=== PATIENT | female | born 1965 | race Caucasian/White ===

== ENCOUNTER 2024-06-19 18:56 | Inpatient (IN) | payer SELFPAY ==
--- NOTE | ~2024-06-19 | CT_ITS ---
CLINICAL HISTORY: periumblical mass? Incarcerated hernia? CT abdomen and pelvis with contrast Comparison: None Findings: No consolidation or effusion. Small hiatal hernia. Postsurgical changes noted along the gastric fundus. The liver, gallbladder, spleen, adrenal glands and pancreas are unremarkable. Kidneys, ureters and bladder are normal. Uterus and adnexa are within normal limits. There is a small bowel obstruction present. No pneumatosis, free air or abscess. Normal appendix. There is a focus of intussusception with the jejunal anastomosis, axial 38 -49. This is not appear to be the source of obstruction is small-bowel disc due to this is dilated. There is a fat containing ventral hernia with a 13 mm fascial defect. Mild stranding of the fat within this hernia. There is no bowel within the hernia. Question transition point involving a decompressed loop of small bowel within the anterior midabdomen , lateral to the hernia. Mild atherosclerotic disease. No acute osseous finding. Impression: There is a small bowel obstruction with the question of a transition involving the anterior midabdomen. This may relate to tethering secondary to herniated fat. The hernia sac itself does not contain bowel. There is intussusception of small bowel within the region of the jejunal anastomosis however this does not appear to be a point of obstruction. Incidental findings. This document has been electronically signed by: Benji Carter MD on 06/19/2024 22:25:07
[2024-06-19 20:07] VITALS: BP 154/91; PULSE 106; RESP 18; TEMP 36.4; O2SAT 96; BMI 38.3
--- NOTE | 2024-06-19 20:10 | ED.GENADULT ---
HPI - General Adult General Chief complaint: Abdominal Pain Stated complaint: Abdominal pain Time Seen by Provider: 06/19/24 20:28 Related Data Allergies Allergy/AdvReac Type Severity Reaction Status Date / Time No Known Allergies Allergy Unverified 06/19/24 20:09 [facility] Social History Social History Smoked in Last 30 Days: No Use of substances other than those prescribed or required for medical reasons: No Advance Directives: No Advance Directives Information Provided: No Do you have a plan to hurt others: No Plan Patient : No Physical Exam ED Vital Signs: Vital Signs - 24 hr 06/19/24 20:07 06/19/24 20:21 06/19/24 22:20 Temperature 97.6 F 98.3 F Pulse Rate 106 H 74 Respiratory Rate 18 17 19 Blood Pressure 154/91 H 138/71 Pulse Oximetry 96 97 Oxygen Delivery Method Room Air Room Air BMI result Body Mass Index 38.3 Course Course Course Narrative: RME: 58-year-old female presents to ED for abdominal pain. Patient presents to ED for hard abdominal mass in the periumbilical area since last night with nausea and vomiting. On exam positive for hard periumbilical mass very tender. Labs CT scan ordered to rule out incarcerated hernia. Charge nurse made aware. Patient constipated. Medications Administered Discontinued Medications Generic Name Dose Route Start Last Admin Trade Name Freq PRN Reason Stop Dose Admin Sodium Chloride 1,000 mls @ 999 mls/hr 06/19/24 21:00 06/19/24 21:08 Ns IV 06/19/24 22:00 999 mls/hr .Q1H1M CHANELL Administration Sodium Chloride 1,000 mls @ 999 mls/hr 06/19/24 21:15 06/19/24 21:08 Ns IV 06/19/24 22:15 999 mls/hr .Q1H1M CHANELL Administration Iohexol 85 ml 06/19/24 21:33 06/19/24 21:33 Iohexol 350 Mg/Ml 100 Ml Infus..Btl IV 06/19/24 21:34 85 ml ONCE ONE Administration Morphine Sulfate 4 mg 06/19/24 20:12 06/19/24 20:21 Morphine Sulfate 4 Mg/Ml Cartridge IVPUSH 06/19/24 20:13 4 mg ONCE ONE Administration Protocol Ondansetron HCl 4 mg 06/19/24 20:19 06/19/24 20:22 Ondansetron Hcl 4 Mg/2 Ml Vial IVPUSH 06/19/24 20:20 4 mg ONCE ONE Administration Medical Decision Making Lab Data 06/19/24 20:35 06/19/24 20:35 Labs: Lab Results 06/19/24 Range/Units 20:35 WBC 12.3 H (4.8-10.8) X10*3/uL RBC 5.30 (4.20-5.50) X10*6/uL Hgb 15.6 (12.0-16.0) g/dl Hct 45.5 (37.0-47.0) % MCV 85.8 (80.0-98.0) fL MCH 29.4 (27.0-33.0) pg MCHC 34.3 (31.0-35.0) g/dl RDW 13.2 (11.0-16.0) % Plt Count 299 (160-400) X10*3/uL MPV 9.7 (9.4-12.3) fL Immature Gran % (Auto) 0.2 (0.0-0.4) % Neut % (Auto) 84.9 H (45-73) % Lymph % (Auto) 10.5 L (20-40) % [place] % (Auto) 4.0 (2-11) % Eos % (Auto) 0.2 (0-4) % Baso % (Auto) 0.2 (0-2) % Lymph # (Auto) 1.3 (1.2-4.9) X10*3/uL [place] # (Auto) 0.5 (0.1-1.2) X10*3/uL Eos # (Auto) 0.0 (0.0-0.4) X10*3/uL Baso # (Auto) 0.0 (0.0-0.2) X10*3/uL Abs Immat Gran (auto) 0.03 (0.00-0.03) X10*3/uL Absolute Neuts (auto) 10.4 H (2.0-8.3) x10*3/uL Absolute Nucleated RBC 0.000 (0.0-0.012) X10*3/uL Nucleated RBC % (auto) 0.0 (0.0-0.2) /100WBC Sodium 139 (135-145) mmol/L Potassium 3.9 (3.3-5.1) mmol/L Chloride 102 (96-108) mmol/L Carbon Dioxide 22 (22-29) mmol/L Anion Gap 19 (12-20) BUN 14 (9-16) mg/dL Creatinine 1.04 (0.5-1.4) mg/dL Estim Creat Clear Calc 68.9 Estimated GFR 54 Random Glucose 214 H (60-115) mg/dL Lactic Acid 3.2 H* (0.5-2.0) mmol/L Calcium 10.5 H (8.4-10.2) mg/dL Total Bilirubin 0.8 (0.0-1.0) mg/dL AST 25 (5-31) U/L ALT 38 H (0-31) U/L Alkaline Phosphatase 84 (39-117) U/L Total Protein 8.6 H (6.5-8.0) g/dL Albumin 4.7 (3.5-5.0) g/dL Discharge Plan Discharge Clinical Impression: Hernia, ventral, Partial small bowel obstruction Patient Disposition: Admitted As Inpatient Print Language: Angolan
[2024-06-19 20:21] VITALS: RESP 17
[2024-06-19] MEDS: Morphine Sulfate 4 MG/ML CARTRIDGE IVPUSH (20:21)
[2024-06-19] MEDS: ondansetron HCL 4 MG/2 ML VIAL IVPUSH (20:22)
--- NOTE | 2024-06-19 20:29 | PC.NURSE ---
pt brought from triage to room. pt a&ox4, respirations even and unlabored. pt reporting waking up with sudden abdominal pain, nausea and vomiting, pt noted to have large hard mass on abdomen which is tender to touch. pt vomiting in room. 20G placed in left ac, medicated per apr.
[2024-06-19 20:41] LABS: MANUAL DIFF FLAG NO
--- NOTE | 2024-06-19 20:42 | ED_ITS ---
HPI - Abdominal Pain General Chief Complaint: Abdominal Pain Stated Complaint: Abdominal pain Time Seen by Provider: 06/19/24 20:28 History of Present Illness HPI narrative: Patient is a 58-year-old female with a history of gastric bypass about 15-20 years ago. Presented today with having abdominal pain in the epigastric area that was very abrupt in onset. Patient feel a mass there positive nausea positive bowel movement. Vomiting was yellow stuff. Patient from home. No fever no chills. No history small bowel obstruction in the past. Patient is from home. No chest pain or shortness of breath no diaphoresis. Related Data Allergies Allergy/AdvReac Type Severity Reaction Status Date / Time No Known Allergies Allergy Unverified 06/19/24 20:09 Review of Systems Review of Systems Positive abdominal pain in the epigastric area Yes all other systems are reviewed and are negative [facility] Past Medical History Attestation statement: The following information was validated with the patient. Social History Social History Smoked in Last 30 Days: No Use of substances other than those prescribed or required for medical reasons: No Advance Directives: No Advance Directives Information Provided: No Do you have a plan to hurt others: No Plan Patient : No Physical Exam ED Vital Signs: Vital Signs - 24 hr 06/19/24 20:07 06/19/24 20:21 06/19/24 22:20 Temperature 97.6 F 98.3 F Pulse Rate 106 H 74 Respiratory Rate 18 17 19 Blood Pressure 154/91 H 138/71 Pulse Oximetry 96 97 Oxygen Delivery Method Room Air Room Air BMI result Body Mass Index 38.3 Appearance: Alert. Oriented X3. No acute distress. Eyes: Pupils equal, round and reactive to light. ENT: Pharynx normal. Neck: Normal inspection. Neck supple. No lymph nodes noted. No crepitus CVS: Normal heart rate and rhythm. Pulses normal. Normal S1 and S2 Respiratory: No respiratory distress. Breath sounds normal. No Wheezing. No rales Abdomen: Soft and nontender. Positive epigastric mass palpable. No rigidity. No distention. good BS x4 Skin: Skin warm and dry. Normal skin color. Normal skin turgor. Extremities: No lower extremity edema. Neurovascular intact to all extremities. No Lacerations. No Rash Neuro: Oriented X 3. No motor deficit. No sensory deficit. Moving all extermities. No slurred speech Medical Decision Making Medical Decision Making [facility] Narrative: On exam patient had a what appears to be a hernia belt was palpable in the epigastric area. Flu constant pressure I was able to reduce it without any complication symptomatically patient feels improved. CT scan is pending labs are pending lactate is pending. In no acute distress. Patient's lactate was elevated at over 3. White count was normal. Patient's hernia was reduced. CT scan of the abdomen pelvis was done. CT showed fat containing ventral hernia with area of small bowel obstruction noted in the CT scan. The finding was discussed with surgery. Patient's symptomatically feels improved. IV fluid was given. Case discussed with surgery will admit for observation overnight. Currently in stable condition. Differential Diagnosis Differential Diagnoses: The differential diagnosis associated with the presentation includes Ventral hernia, small-bowel obstruction Admission/Observation Consideration of admission/observation: Escalation of care including admission/observation considered Will require admission Consult Healthcare Provider Management of the patient was discussed with: Tile Designer (Surgery) Lab Data [facility] Lab Attestation statement: I reviewed the patient's lab results. 06/19/24 20:35 06/19/24 20:35 Labs: Lab Results 06/19/24 Range/Units 20:35 WBC 12.3 H (4.8-10.8) X10*3/uL RBC 5.30 (4.20-5.50) X10*6/uL Hgb 15.6 (12.0-16.0) g/dl Hct 45.5 (37.0-47.0) % MCV 85.8 (80.0-98.0) fL MCH 29.4 (27.0-33.0) pg MCHC 34.3 (31.0-35.0) g/dl RDW 13.2 (11.0-16.0) % Plt Count 299 (160-400) X10*3/uL MPV 9.7 (9.4-12.3) fL Immature Gran % (Auto) 0.2 (0.0-0.4) % Neut % (Auto) 84.9 H (45-73) % Lymph % (Auto) 10.5 L (20-40) % [place] % (Auto) 4.0 (2-11) % Eos % (Auto) 0.2 (0-4) % Baso % (Auto) 0.2 (0-2) % Lymph # (Auto) 1.3 (1.2-4.9) X10*3/uL [place] # (Auto) 0.5 (0.1-1.2) X10*3/uL Eos # (Auto) 0.0 (0.0-0.4) X10*3/uL Baso # (Auto) 0.0 (0.0-0.2) X10*3/uL Abs Immat Gran (auto) 0.03 (0.00-0.03) X10*3/uL Absolute Neuts (auto) 10.4 H (2.0-8.3) x10*3/uL Absolute Nucleated RBC 0.000 (0.0-0.012) X10*3/uL Nucleated RBC % (auto) 0.0 (0.0-0.2) /100WBC Sodium 139 (135-145) mmol/L Potassium 3.9 (3.3-5.1) mmol/L Chloride 102 (96-108) mmol/L Carbon Dioxide 22 (22-29) mmol/L Anion Gap 19 (12-20) BUN 14 (9-16) mg/dL Creatinine 1.04 (0.5-1.4) mg/dL Estim Creat Clear Calc 68.9 Estimated GFR 54 Random Glucose 214 H (60-115) mg/dL Lactic Acid 3.2 H* (0.5-2.0) mmol/L Calcium 10.5 H (8.4-10.2) mg/dL Total Bilirubin 0.8 (0.0-1.0) mg/dL AST 25 (5-31) U/L ALT 38 H (0-31) U/L Alkaline Phosphatase 84 (39-117) U/L Total Protein 8.6 H (6.5-8.0) g/dL Albumin 4.7 (3.5-5.0) g/dL Independent Interpretation I performed an independent interpretation of an: CT Scan (Small-bowel obstruction) Radiology Impression Discussion of test interpretation with radiology: I have reviewed the radiologist's reading. Chronic Conditions History of Betsy-en-Y gastric bypass surgery Social Determinants Patient?s care significantly limited by Social Determinants of Health including: Problems related to primary support group Medications Administered Discontinued Medications Generic Name Dose Route Start Last Admin Trade Name Hilary PRN Reason Stop Dose Admin Sodium Chloride 1,000 mls @ 999 mls/hr 06/19/24 21:00 06/19/24 21:08 Ns IV 06/19/24 22:00 999 mls/hr .Q1H1M CHANELL Administration Sodium Chloride 1,000 mls @ 999 mls/hr 06/19/24 21:15 06/19/24 21:08 Ns IV 06/19/24 22:15 999 mls/hr .Q1H1M CHANELL Administration Iohexol 85 ml 06/19/24 21:33 06/19/24 21:33 Iohexol 350 Mg/Ml 100 Ml Infus..Btl IV 06/19/24 21:34 85 ml ONCE ONE Administration Morphine Sulfate 4 mg 06/19/24 20:12 06/19/24 20:21 Morphine Sulfate 4 Mg/Ml Cartridge IVPUSH 06/19/24 20:13 4 mg ONCE ONE Administration Protocol Ondansetron HCl 4 mg 06/19/24 20:19 06/19/24 20:22 Ondansetron Hcl 4 Mg/2 Ml Vial IVPUSH 06/19/24 20:20 4 mg ONCE ONE Administration Discharge Plan Discharge Clinical Impression: Hernia, ventral, Partial small bowel obstruction Patient Disposition: Admitted As Inpatient Print Language: French
[2024-06-19 20:43] LABS: Basophils Percent Auto 0.2 % (0-2); Eosinophils Percent Auto 0.2 % (0-4); Hematocrit 45.5 % (37.0-47.0); Hemoglobin 15.6 g/dl (12.0-16.0); Imm Gran Abs Auto 0.03 X10*3/uL (0.00-0.03); Imm Gran Pct Auto 0.2 % (0.0-0.4); Lymphocytes Absolute Auto 1.3 X10*3/uL (1.2-4.9); Lymphocytes Percent Auto 10.5 % (20-40); Mean Corpuscular HGB Conc 34.3 g/dl (31.0-35.0); Mean Corpuscular Hemoglobin 29.4 pg (27.0-33.0); Mean Corpuscular Volume 85.8 fL (80.0-98.0); Mean Platelet Volume 9.7 fL (9.4-12.3); Monocytes Absolute Auto 0.5 X10*3/uL (0.1-1.2); Neutrophils Absolute Auto 10.4 x10*3/uL (2.0-8.3); Neutrophils Percent Auto 84.9 % (45-73); Platelet Count 299 X10*3/uL (160-400); Red Cell Distribution Width 13.2 % (11.0-16.0); White Blood Count 12.3 X10*3/uL (4.8-10.8)
[2024-06-19 20:57] LABS: Alanine Aminotransferase 38 U/L (0-31); Albumin Level 4.7 g/dL (3.5-5.0); Alkaline Phosphatase 84 U/L (39-117); Anion Gap 19 (12-20); Aspartate Amino Transferase 25 U/L (5-31); Bilirubin Total 0.8 mg/dL (0.0-1.0); Blood Urea Nitrogen 14 mg/dL (9-16); Calcium 10.5 mg/dL (8.4-10.2); Carbon Dioxide 22 mmol/L (22-29); Chloride 102 mmol/L (96-108); Creatinine Clr Calc Pharmacy 68.9; Estimated Glomerular Filt Rate 54; Glucose Random 214 mg/dL (60-115); Potassium 3.9 mmol/L (3.3-5.1); Sodium 139 mmol/L (135-145); Total Protein 8.6 g/dL (6.5-8.0)
[2024-06-19 21:03] LABS: Lactic Acid 3.2 mmol/L (0.5-2.0)
[2024-06-19] MEDS: 0.9 % Sodium Chloride 1,000 ML 999 ML IV ×2 (21:08)
[2024-06-19] MEDS: iohexoL 350 MG/ML 100 ML INFUS..BTL 85 ML IV (21:33)
--- NOTE | 2024-06-19 22:17 | PC.NURSE ---
pt reports pain has subsided. fluids continue to administer at this time.
[2024-06-19 22:20] VITALS: BP 138/71; PULSE 74; RESP 19; TEMP 36.8; O2SAT 97
[2024-06-19 22:39] LABS: Reflex Lactate? Lactic Acid Added
[2024-06-19] MEDS: Dextrose 5 % and Lactated Ring 1,000 ML 125 ML IVCONT (23:03)
[2024-06-19 23:07] VITALS: RESP 17
[2024-06-19] MEDS: HYDROmorphone HCl 0.5 MG/0.5 ML SYRINGE IVPUSH (23:07)
--- NOTE | 2024-06-19 23:09 | PC.NURSE ---
pt medicated per apr for 10/07 and pain. maintainece fluids administered at this time.
[2024-06-19 23:10] VITALS: BP 132/78; PULSE 78
[2024-06-19 23:21] VITALS: BP 128/60; PULSE 61; RESP 16; TEMP 37.3; O2SAT 93
--- NOTE | 2024-06-19 23:34 | MHC.EDTECH ---
This pct assumed care of Patient at 2300 ,vitals taken ,lactic acid drawn and sent to lab ,Patient belonings list done ,Patient awaking ,resting in bed ,Patient aware we need urine sample ,Call lucas within Pt reach .
[2024-06-19 23:40] LABS: ~Lactic Acid-LAB USE ONLY 1.2 mmol/L (0.5-2.0)
[2024-06-20] VITALS (9 sets, daily range): BP systolic 126–153; BP diastolic 63–82; PULSE 52–95; RESP 16–18; TEMP 36.1–37.1; O2SAT 93–99
[2024-06-20 03:57] LABS: MANUAL DIFF FLAG NO
[2024-06-20 03:59] LABS: Basophils Percent Auto 0.2 % (0-2); Eosinophils Percent Auto 0.1 % (0-4); Hematocrit 37.6 % (37.0-47.0); Hemoglobin 12.4 g/dl (12.0-16.0); Imm Gran Abs Auto 0.02 X10*3/uL (0.00-0.03); Imm Gran Pct Auto 0.2 % (0.0-0.4); Lymphocytes Absolute Auto 1.7 X10*3/uL (1.2-4.9); Lymphocytes Percent Auto 18.7 % (20-40); Mean Corpuscular Hemoglobin 29.2 pg (27.0-33.0); Mean Corpuscular Volume 88.5 fL (80.0-98.0); Mean Platelet Volume 9.5 fL (9.4-12.3); Monocytes Absolute Auto 0.5 X10*3/uL (0.1-1.2); Monocytes Percent Auto 5.6 % (2-11); Neutrophils Absolute Auto 6.7 x10*3/uL (2.0-8.3); Neutrophils Percent Auto 75.2 % (45-73); Platelet Count 259 X10*3/uL (160-400); Red Blood Count 4.25 X10*6/uL (4.20-5.50); Red Cell Distribution Width 13.3 % (11.0-16.0); White Blood Count 8.9 X10*3/uL (4.8-10.8)
[2024-06-20 04:17] LABS: Anion Gap 12 (12-20); Blood Urea Nitrogen 10 mg/dL (9-16); Calcium 8.4 mg/dL (8.4-10.2); Carbon Dioxide 21 mmol/L (22-29); Chloride 110 mmol/L (96-108); Creatinine Clr Calc Pharmacy 108.6; Estimated Glomerular Filt Rate > 60; Glucose Random 169 mg/dL (60-115); Sodium 139 mmol/L (135-145)
--- NOTE | 2024-06-20 05:31 | PC.NURSE ---
pt awake and ambulatory to bathroom with steady gait, pt offers no complaints at this time
--- NOTE | 2024-06-20 06:12 | PM.HPGS ---
History of Present Illness History of Present Illness Date of Service: 06/20/24 <Merline White PA-C - Last Filed: 06/20/24 10:06> 06/20/24 <Jerry Pandey MD - Last Filed: 06/20/24 12:05> Chief complaint: Small bowel obstruction <Merline White PA-C - Last Filed: 06/20/24 10:06> Narrative: Bee Cordero is a 58 year old female with PMH significant for distant lap katya n y gastric bypass who presented to the ED with complaints of epigastric/mid abdominal pain and a hard lump at her umbilicus. She reports she was awoken by the pain. She has never noticed the lump there prior. The pain was associated with multiple episodes of vomiting. SHe denies fever, chills, diarrhea, sick contacts, prior similar episode. Work up showed leukocytosis and lactic acidosis of 3. Epigastric lump was felt to be a ventral hernia and was reduced uneventfully by ED provider with improvement in the patients symptoms. CT scan abd pelvis was performed following which showed a fat containing ventral hernia with mild stranding of the incarcerated fat, no bowel, possble intussusception with the jejunal anastomosis, small bowel at that point is dilated, question transition point involving a decompressed loop of small bowel within the anterior midabdomen. She currently feels well with no abdominal pain. No further nausea or vomiting since presentation. She has not passed any flatus. <Merline White PA-C - Last Filed: 06/20/24 10:06> Review of Systems Review of Systems: Yes all other systems are reviewed and are negative <Merline White PA-C - Last Filed: 06/20/24 10:06> PMFSH Past Medical History Medical History: Medical History No pertinent past medical history <Merline White PA-C - Last Filed: 06/20/24 10:06> Surgical History Surgical History: Surgical History Hx of gastric bypass <Merline White PA-C - Last Filed: 06/20/24 10:06> Social History Social History: Social History Household Members: Spouse Housing: House Are you a primary managed care manager to a significant other at home: No Do you presently have visiting nurse or other home services: No Patient Tobacco Use Status: Never used Tobacco Smoked in Last 30 Days: No Use of substances other than those prescribed or required for medical reasons: No Currently Displaying Signs/Symptoms of Drug Intoxication Withdrawal: No Have you been hit, kicked, punched, or otherwise hurt by someone within the past year? If so, by whom?: No Do you feel safe in your current relationship?: Yes Is there a partner from a previous relationship who is making you feel unsafe now?: No Are you made to feel afraid or neglected: No Are you DNR?: No Advance Directives: No Advance Directives Information Provided: No Do you have a plan to hurt others: No Plan Recently lost weight without trying: No Nutrition Risks: No Nutritional Risk Patient : No : No Poor oral hygiene: No <Merline White PA-C - Last Filed: 06/20/24 10:06> Meds Allergies/Adverse reactions: Allergies Allergy/AdvReac Type Severity Reaction Status Date / Time No Known Allergies Allergy Verified 06/20/24 11:02 <Merline White PA-C - Last Filed: 06/20/24 10:06> Active Medications: Current Medications Calcium Carbonate (Calcium Carbonate 750 Mg Tab.Chew) 750 mg PO Q4H PRN PRN Reason: Heartburn Hydromorphone HCl (Hydromorphone Hcl 0.5 Mg/0.5 Ml Syringe) 0.5 mg IVPUSH Q3H PRN; Protocol PRN Reason: Pain, Severe (Pain Scale 7-10) Last Admin: 06/19/24 23:07 Dose: 0.5 mg Acetaminophen (Ofirmev) 1,000 mg in 100 mls @ 400 mls/hr IV Q6H PRN PRN Reason: Pain, Mild (Pain Scale 1-3) Dextrose/Lactated Ringer's (D5lr) 1,000 mls @ 125 mls/hr IVCONT .Q8H CHANELL Last Admin: 06/19/24 23:03 Dose: 125 mls/hr Magnesium Hydroxide (Milk Of Magnesia 30 Ml Oral.Susp) 30 ml PO DAILY PRN PRN Reason: Constipation Melatonin (Melatonin 3 Mg Tablet) 6 mg PO BEDTIME PRN PRN Reason: Insomnia Ondansetron HCl (Ondansetron Hcl 4 Mg/2 Ml Vial) 4 mg IVPUSH QID PRN PRN Reason: Nausea Sodium Chloride (0.9 % Sodium Chloride Flush 3 Ml Syringe) [address] [facility] Last Admin: 06/20/24 00:25 Dose: Not Given <LAVELLE Nieves Last Filed: 06/20/24 10:06> Home medications: Home Medications ?Medication ?Instructions ?Recorded ?Confirmed ?Last Taken ?Type cyanocobalamin (vitamin B-12) 2,000 mcg PO DAILY 06/20/24 06/20/24 06/18/24 History 1,000 mcg tablet (Vitamin B-12) multivitamin 1 tab PO DAILY 06/20/24 06/20/24 06/18/24 History omega 8-xof-cog-fish oil 1,000 mg 1 cap PO DAILY 06/20/24 06/20/24 06/18/24 History (120 mg-180 mg) capsule (Fish Oil) <LAVELLE Nieves Last Filed: 06/20/24 10:06> Physical Exam Vital Signs: Vital Signs: Last Vital Signs Temp 99.2 F 06/19/24 23:21 Pulse 61 06/19/24 23:21 Resp 16 06/19/24 23:21 BP 128/60 06/19/24 23:21 Pulse Ox 93 06/19/24 23:21 O2 Del Method Room Air 06/19/24 23:21 BMI result Body Mass Index 38.3 <LAVELLE Nieves Last Filed: 06/20/24 10:06> Const: General: comfortable, no acute distress and alert <LAVELLE Nieves Last Filed: 06/20/24 10:06> Orientation/consciousness: patient oriented x3 <LAVELLE Nieves Last Filed: 06/20/24 10:06> Resp: Effort & Inspection: normal respiratory effort <LAVELLE Nieves Last Filed: 06/20/24 10:06> GI: Other: multiple small scars of the upper abdomen, periumbilical scar with small mass below about 2-3cm consistent with incarcerated omentum, no overyling skin changes, mild tenderness <LAVELLE Nieves Last Filed: 06/20/24 10:06> Inspection: No distended <LAVELLE Nieves Last Filed: 06/20/24 10:06> Palpation (GI): Soft to palpation and no guarding <LAVELLE Nieves Last Filed: 06/20/24 10:06> Skin: General skin exam: no rashes or lesions noted <LAVELLE iNeves Last Filed: 06/20/24 10:06> Neuro: General: patient oriented x3 and moves all extremities <LAVELLE Nieves Last Filed: 06/20/24 10:06> Results Results Labs: Short CBC 06/19/24 06/20/24 Range/Units 20:35 03:52 WBC 12.3 H 8.9 (4.8-10.8) X10*3/uL Hgb 15.6 12.4 D (12.0-16.0) g/dl Hct 45.5 37.6 (37.0-47.0) % Plt Count 299 259 (160-400) X10*3/uL BMP 06/19/24 06/20/24 20:35 03:52 Sodium 139 139 Potassium 3.9 4.0 Chloride 102 110 H Carbon Dioxide 22 21 L BUN 14 10 Creatinine 1.04 0.66 Calcium 10.5 H 8.4 D Liver Function 06/19/24 Range/Units 20:35 Total Bilirubin 0.8 (0.0-1.0) mg/dL AST 25 (5-31) U/L ALT 38 H (0-31) U/L Alkaline Phosphatase 84 (39-117) U/L Albumin 4.7 (3.5-5.0) g/dL <LAVELLE Nieves Last Filed: 06/20/24 10:06> Abdomen CT scan report/results: report reviewed and image reviewed <Merline Truongdeau, PA-C - Last Filed: 06/20/24 10:06> Assessment and Plan (1) H/O gastric bypass: Status: Acute <Merline ChristopherLAVELLE figueroa - Last Filed: 06/20/24 10:06> (2) Partial small bowel obstruction: Status: Acute <Merline ChristopherLAVELLE figueroa Jazmyne Last Filed: 06/20/24 10:06> (3) Hernia, ventral: Qualifiers: Obstruction and gangrene presence: without obstruction or gangrene Qualified Code(s): K43.9 - Ventral hernia without obstruction or gangrene <Merline White PA-C Jazmyne Last Filed: 06/20/24 10:06> Status: Acute <Merline ChristopherLAVELLE figueroa Jazmyne Last Filed: 06/20/24 10:06> 58 year old female with PMH significant for distant lap katya n y gastric bypass presenting with mid abdominal pain associated with painful lump found to have incarcerated ventral hernia which was reduced in ED. Subsequent CT scan shows ventral hernia with fat contents, no bowel loops. May have had developed SBO secondary to this hernia given the small bowel dilatation. She does still have some incarcerated omentum and is mildly symptomatic for this. She was admitted to the surgical service for further treatment of the SBO, incisional hernia. We discussed proceeding with repair of the incarcerated incisional hernia during her stay. Will keep NPO for now, Cont IVF, encouraged OOB/ambulation to promote GI function. Lactic acidosis likely due to volume depletion due to GI losses, now resolved. Patient comfortable with plan. <Merline White PA-C - Last Filed: 06/20/24 10:06> 58 year old female with PMH significant for distant lap katya n y gastric bypass presenting with mid abdominal pain associated with painful lump found to have incarcerated ventral hernia which was reduced in ED. Subsequent CT scan shows ventral hernia with fat contents, no bowel loops. May have had developed SBO secondary to this hernia given the small bowel dilatation. She does still have some incarcerated omentum and is mildly symptomatic for this. She was admitted to the surgical service for further treatment of the SBO, incisional hernia. We discussed proceeding with repair of the incarcerated incisional hernia during her stay. Will keep NPO for now, Cont IVF, encouraged OOB/ambulation to promote GI function. Lactic acidosis likely due to volume depletion due to GI losses, now resolved. Patient comfortable with plan. Patient seen and examined independently and agree with the above assessment and plan. Patient has a reducible ventral hernia measuring 2 cm in diameter. She was still having tenderness to palpation of the hernia therefore I would recommend repair of this ventral hernia with mesh. After discussion of the procedure, risks, and alternatives, she consents to repair of the ventral hernia with mesh. She has been added onto the operative schedule for today. <Jerry Pandey MD - Last Filed: 06/20/24 12:05> Quality Stroke Does the patient have a stroke diagnosis?: No <Merline White PA-C - Last Filed: 06/20/24 10:06> VTE Prior VTE?: No <Merline White PA-C - Last Filed: 06/20/24 10:06> VTE Risk Level:: Surgical - moderate <Merline White PA-C - Last Filed: 06/20/24 10:06> VTE Device Contraindication: N/A - Device Ordered <Merline White PA-C - Last Filed: 06/20/24 10:06> VTE Drug Contraindication: Treatment Not Indicated <Merline White PA-C - Last Filed: 06/20/24 10:06> Procedures Date of Service Date of Service: 06/20/24 <Merline White PA-C - Last Filed: 06/20/24 10:06> 06/20/24 <Jerry Pandey MD - Last Filed: 06/20/24 12:05>
[2024-06-20] MEDS: Dextrose 5 % and Lactated Ring 1,000 ML 125 ML IVCONT ×3 (06:21→22:40)
--- NOTE | 2024-06-20 06:21 | PC.NURSE ---
pt left ac iv access removed at this time d/t infiltration.
--- NOTE | 2024-06-20 06:23 | MHC.EDTECH ---
Patient urine sample collected and sent to lab ,Call lance within Pt reach .
[2024-06-20 06:40] LABS: Appearance Urine Clear; Color Urine Yellow; Glucose Urine UA Negative (Negative); Leukocyte Esterase Urine Trace (Negative); Nitrite Urine Negative (Negative); PH 5.5 (5.0-9.0); Specific Gravity - Urine >= 1.030 (1.005-1.025); UMIC TRIGGER UACC YES; Urine Blood Negative (Negative); Urine Ketones Negative (Negative); Urine Protein Negative (Neg-Trace)
[2024-06-20 06:42] LABS: Bacteria Urine 1+ (None Seen); RBC Urine 0-2 /HPF (0-2); WBC Urine 0-5 /HPF (0-5)
--- NOTE | 2024-06-20 07:32 | PHA.MEDREC ---
Pharmacy Consult ? Medication Reconciliation Pharmacy has completed the medication reconciliation. Spoke to patient ton confirm medication list. Patient does not take any prescriptions, only OTCs. Last dose was Tuesday06/18/24.
--- NOTE | 2024-06-20 11:15 | P.CONAN_ITS ---
HPI - Anesthesia Eval Consult details Narrative: incisional hernia repair PMFSH Active Problems Active Problems: All Active Problems H/O gastric bypass (Acute) Partial small bowel obstruction (Acute) Hernia, ventral (Acute) Past Medical History Medical History No pertinent past medical history Family History Family history of problems with anesthesia: No Surgical History Surgical History Hx of gastric bypass History of Problems with Anesthesia: No Social History Social History Household Members: Spouse Housing: House Are you a primary career placement specialist to a significant other at home: No Do you presently have visiting nurse or other home services: No Patient Tobacco Use Status: Never used Tobacco Smoked in Last 30 Days: No Use of substances other than those prescribed or required for medical reasons: No Currently Displaying Signs/Symptoms of Drug Intoxication Withdrawal: No Have you been hit, kicked, punched, or otherwise hurt by someone within the past year? If so, by whom?: No Do you feel safe in your current relationship?: Yes Is there a partner from a previous relationship who is making you feel unsafe now?: No Are you made to feel afraid or neglected: No Are you DNR?: No Advance Directives: No Advance Directives Information Provided: No Do you have a plan to hurt others: No Plan Recently lost weight without trying: No Nutrition Risks: No Nutritional Risk Patient : No : No Poor oral hygiene: No Meds Allergies Allergy/AdvReac Type Severity Reaction Status Date / Time No Known Allergies Allergy Verified 06/20/24 11:02 Active Medications: Current Medications Calcium Carbonate (Calcium Carbonate 750 Mg Tab.Chew) 750 mg PO Q4H PRN PRN Reason: Heartburn Hydromorphone HCl (Hydromorphone Hcl 0.5 Mg/0.5 Ml Syringe) 0.5 mg IVPUSH Q3H PRN; Protocol PRN Reason: Pain, Severe (Pain Scale 7-10) Last Admin: 06/19/24 23:07 Dose: 0.5 mg Acetaminophen (Ofirmev) 1,000 mg in 100 mls @ 400 mls/hr IV Q6H PRN PRN Reason: Pain, Mild (Pain Scale 1-3) Dextrose/Lactated Ringer's (D5lr) 1,000 mls @ 125 mls/hr IVCONT .Q8H [facility] Last Admin: 06/20/24 06:21 Dose: 125 mls/hr Magnesium Hydroxide (Milk Of Magnesia 30 Ml Oral.Susp) 30 ml PO DAILY PRN PRN Reason: Constipation Melatonin (Melatonin 3 Mg Tablet) 6 mg PO BEDTIME PRN PRN Reason: Insomnia Ondansetron HCl (Ondansetron Hcl 4 Mg/2 Ml Vial) 4 mg IVPUSH QID PRN PRN Reason: Nausea Sodium Chloride (0.9 % Sodium Chloride Flush 3 Ml Syringe) 3 ml IVFLUSH QSHIFT [facility] Last Admin: 06/20/24 07:46 Dose: Not Given Home Medications ?Medication ?Instructions ?Recorded ?Confirmed ?Last Taken ?Type cyanocobalamin (vitamin B-12) 2,000 mcg PO DAILY 06/20/24 06/20/24 06/18/24 History 1,000 mcg tablet (Vitamin B-12) multivitamin 1 tab PO DAILY 06/20/24 06/20/24 06/18/24 History omega 3-rbi-umk-fish oil 1,000 mg 1 cap PO DAILY 06/20/24 06/20/24 06/18/24 History (120 mg-180 mg) capsule (Fish Oil) Exam Height,Weight and Vital Signs: Height 5 ft 5 in Weight 104.326 kg Last Vital Signs Temp 97.8 F 06/20/24 07:50 Pulse 63 06/20/24 07:50 Resp 16 06/20/24 07:50 BP 153/72 H 06/20/24 07:50 Pulse Ox 97 06/20/24 07:50 O2 Del Method Room Air 06/20/24 07:50 Pertinent Lab Results Pertinent Lab Results: Laboratory Tests 06/19/24 06/19/24 06/20/24 20:35 23:19 03:52 WBC 12.3 H 8.9 RBC 5.30 4.25 Hgb 15.6 12.4 D Hct 45.5 37.6 MCV 85.8 88.5 MCH 29.4 29.2 MCHC 34.3 33.0 RDW 13.2 13.3 Plt Count 299 259 MPV 9.7 9.5 Immature Gran % (Auto) 0.2 0.2 Neut % (Auto) 84.9 H 75.2 H Lymph % (Auto) 10.5 L 18.7 L Gila % (Auto) 4.0 5.6 Eos % (Auto) 0.2 0.1 Baso % (Auto) 0.2 0.2 Lymph # (Auto) 1.3 1.7 Gila # (Auto) 0.5 0.5 Eos # (Auto) 0.0 0.0 Baso # (Auto) 0.0 0.0 Abs Immat Gran (auto) 0.03 0.02 Absolute Neuts (auto) 10.4 H 6.7 Absolute Nucleated RBC 0.000 0.000 Nucleated RBC % (auto) 0.0 0.0 Sodium 139 139 Potassium 3.9 4.0 Chloride 102 110 H Carbon Dioxide 22 21 L Anion Gap 19 12 BUN 14 10 Creatinine 1.04 0.66 Estim Creat Clear Calc 68.9 108.6 Estimated GFR 54 > 60 Random Glucose 214 H 169 H Lactic Acid 3.2 H* Lactic Acid F/U @ 2Hr 1.2 Calcium 10.5 H 8.4 D Total Bilirubin 0.8 AST 25 ALT 38 H Alkaline Phosphatase 84 Total Protein 8.6 H Albumin 4.7 Urine Color Urine Appearance Urine pH Ur Specific [place] Urine Protein Urine Glucose (UA) Urine Ketones Urine Blood Urine Nitrite Ur Leukocyte Esterase Urine RBC Urine WBC Ur Squamous Epith Cells Urine Bacteria Hyaline Casts 06/20/24 06:21 WBC RBC Hgb Hct MCV MCH MCHC RDW Plt Count MPV Immature Gran % (Auto) Neut % (Auto) Lymph % (Auto) Gila % (Auto) Eos % (Auto) Baso % (Auto) Lymph # (Auto) Gila # (Auto) Eos # (Auto) Baso # (Auto) Abs Immat Gran (auto) Absolute Neuts (auto) Absolute Nucleated RBC Nucleated RBC % (auto) Sodium Potassium Chloride Carbon Dioxide Anion Gap BUN Creatinine Estim Creat Clear Calc Estimated GFR Random Glucose Lactic Acid Lactic Acid F/U @ 2Hr Calcium Total Bilirubin AST ALT Alkaline Phosphatase Total Protein Albumin Urine Color Yellow Urine Appearance Clear Urine pH 5.5 Ur Specific [place] >= 1.030 H Urine Protein Negative Urine Glucose (UA) Negative Urine Ketones Negative Urine Blood Negative Urine Nitrite Negative Ur Leukocyte Esterase Trace H Urine RBC 0-2 Urine WBC 0-5 Ur Squamous Epith Cells 6-10 Urine Bacteria 1+ Hyaline Casts 3-5 Airway Mallampati Class: II TM Dist: >3cm Neck ROM: Full Heart: rrr Lungs: cta Assessment and Plan Assessment Anesthesia Assessment: Anesthesia Plan Discussed and Chart Reviewed Final Anesthetic Review Family History of Problems with Anesthesia: No History of Problems with Anesthesia: No NPO: Yes ASA Class: III Final Preanesthetic Review: No Changes in Pt Med Stat, Meds/Allgs Chart Reviewed, Consent Obtained/Reviewed and Anes Risks/Benef Reviewed Patient Risk: Intermediate Procedure Risk: Intermediate Anesthetic Plan Anesthetic Plan: GA Disposition: Standard PACU
[2024-06-20] MEDS: ceFAZolin Sodium/Dextrose,Iso 2 GM/50 ML PIGGYBACK IV (12:24)
--- NOTE | 2024-06-20 12:58 | W.PM.OPN ---
Operative Note Operative Note Date of Service: 06/20/24 Narrative: Preoperative diagnosis: Reducible ventral hernia Postoperative diagnosis: Incarcerated ventral hernia Procedure: Repair of incarcerated ventral hernia with mesh Surgeon: Jerry Pandey MD [employer] Attendant: Merline White PA-C; Lux Ortez PA-C Anesthesia: General endotracheal Indications for procedure: 58-year-old female patient presenting with complaints of abdominal pain in the periumbilical location found to have a palpable lump in this location. This was partially reduced in the emergency department however subsequent CT abdomen and pelvis revealed evidence of omentum within the hernia sac. She presents today for repair of this ventral hernia with mesh. Operative findings: Patient was found to have a 2 cm defect located approximately 3 cm above the umbilicus. The contents were incarcerated within the hernia sac and contained both omentum and a small loop of small bowel. The fascial defect needed to be opened further to allow reduction of the hernia contents. A mesh repair was performed using a 6.4 cm round Ventralex mesh. Specimen: None Estimated blood loss: 5 mL Complications: None Procedure details: Patient was brought to the OR and placed in a supine position. After administering general anesthesia the patient's abdomen was prepped with ChloraPrep and draped in a sterile fashion. A surgical time-out was called the consent confirmed. Patient received preoperative antibiotics and Venodyne boots were in place. Local anesthesia was infiltrated in the midline and a midline incision created just above the umbilicus. Dissection was continued down through the subcutaneous tissue up to the hernia sac. Hernia sac was then dissected down to the fascial defect. A tight fascial defect was identified and the contents were not able to be reduced. The sac was entered and omentum and a small loop of bowel noted within the hernia sac. Dissection was continued down to the fascia which was opened using electrocautery. This allowed reduction of the abdominal contents into the abdominal cavity. Fascia was further defined using electrocautery. A preperitoneal space was then directed using a combination of blunt and sharp dissection. Hemostasis was assured using electrocautery. A 6.4 cm round Ventralex mesh was then obtained. This was deployed within the preperitoneal space and secured in 4 quadrants using the 0 Tycron suture. Fascia was then closed over the mesh using [id number] 0 Tycron sutures. Before completely closing the fascia over mesh approximately 4 mL of Zenrelef was instilled below the fascia for postoperative pain relief. Deep subcutaneous tissue was then closed using interrupted 3-0 Polysorb sutures. Additional Zenrelef was instilled below this closure as well. Dermis was reapproximated using interrupted 3-0 Polysorb sutures. Skin was closed using a running subcuticular 4-0 Polysorb suture. Steri-Strips, 2 x 2 gauze and Tegaderm were then applied. The patient tolerated the procedure well. Sponge, instrument, and needle counts reported as correct. The patient was transferred to PACU in stable condition.
--- NOTE | 2024-06-20 13:13 | MHC.CM.PN ---
Unable to complete CM assessment at this time, patient off unit.
--- NOTE | 2024-06-20 14:09 | PM.EVENT ---
Event Note Date of Service: 06/20/24 Event Note: Seen on afternoon rounds Says he continues to do well Has been ambulating Passing good amounts of flatus via the stoma No stool yet Good pain control He is hungry I urged him to ambulate Okay to try full liquids tonight Started on Colace Time Spent With Patient Time: Total time managing care of this patient today ____ minutes.
--- NOTE | 2024-06-20 15:53 | MHC.CM.PN ---
PATIENT LIVES IN A HOME W/ . FUNCTIONALLY INDEPENDENT. DENIES USE OF DME OR SERVICES. NO PCP. BROCHURE PROVIDED. NO HCP. DECLINES TO COMPLETE AT THIS TIME. NO INSURANCE - FINANCIAL REFERRAL. DP: HOME SELF CARE, TO TRANSPORT. CM WILL CONTINUE TO FOLLOW.
[2024-06-20] MEDS: HYDROmorphone HCl 0.5 MG/0.5 ML SYRINGE IVPUSH (22:39)
[2024-06-21 03:46] VITALS: BP 120/60; PULSE 69; RESP 16; TEMP 36.3; O2SAT 96
[2024-06-21] MEDS: Acetaminophen 1,000 MG/100 ML PIGGYBACK 400 MG IV (03:56)
[2024-06-21] MEDS: Dextrose 5 % and Lactated Ring 1,000 ML 125 ML IVCONT (03:56)
--- NOTE | 2024-06-21 07:35 | P.PNGS_ITS ---
Subjective Subjective Date of Service: 06/21/24 Patient reports: still having pain, tolerating liquids well, flatus and no bowel movement Interval history: 58 year old female POD 1 s/p ventral hernia repair. Patient reports she is doing okay today. States she had a difficult time sleeping due to pain. She endorses pain with ambulation that improves with rest. She is tolerating diet well, had chicken soup for dinner. She denies any bowel movements, endorses passing flatus. She denies any nausea or vomiting at this time. She has been able to ambulate to the bathroom. Physical Exam 2 Vital Signs: Vital Signs: Last Vital Signs Temp 97.4 F 06/21/24 03:46 Pulse 69 06/21/24 03:46 Resp 16 06/21/24 03:46 BP 120/60 06/21/24 03:46 Pulse Ox 96 06/21/24 03:46 O2 Del Method Room Air 06/21/24 03:46 O2 Flow Rate 5 06/20/24 13:35 BMI result Body Mass Index 38.3 Const: General: cooperative, no acute distress, alert and awake O rientation/consciousness: patient oriented x3 GI: Other: incision site dressings intact, dry, clean. Palpation (GI): Soft to palpation, Tenderness to palpation present (GI) (incisional site pain) and no guarding Percussion: Yes normal to percussion Neuro: General: patient oriented x3 Objective Data Active Medications Calcium Carbonate (Calcium Carbonate 750 Mg Tab.Chew) 750 mg PO Q4H PRN PRN Reason: Heartburn Cyanocobalamin (Cyanocobalamin (Vitamin B-12) 1,000 Mcg Tablet) 2,000 mcg PO DAILY CHANELL Docusate Sodium (Docusate Sodium 100 Mg Capsule) 100 mg PO BID CHANELL Hydromorphone HCl (Hydromorphone Hcl 0.5 Mg/0.5 Ml Syringe) 0.5 mg IVPUSH Q3H PRN; Protocol PRN Reason: Pain, Severe (Pain Scale 7-10) Last Admin: 06/20/24 22:39 Dose: 0.5 mg Documented By: KENNETH Acetaminophen (Ofirmev) 1,000 mg in 100 mls @ 400 mls/hr IV Q6H PRN PRN Reason: Pain, Mild (Pain Scale 1-3) Last Infusion: 06/21/24 04:12 Dose: Infused Documented By: KENNETH Dextrose/Lactated Ringer's (D5lr) 1,000 mls @ 125 mls/hr IVCONT .Q8H [facility] Last Admin: 06/21/24 03:56 Dose: 125 mls/hr Documented By: KENNETH Magnesium Hydroxide (Milk Of Magnesia 30 Ml Oral.Susp) 30 ml PO DAILY PRN PRN Reason: Constipation Melatonin (Melatonin 3 Mg Tablet) 6 mg PO BEDTIME PRN PRN Reason: Insomnia Ondansetron HCl (Ondansetron Hcl 4 Mg/2 Ml Vial) 4 mg IVPUSH QID PRN PRN Reason: Nausea Oxycodone HCl (Oxycodone Hcl Immed Release 5 Mg Tablet) 5 mg PO Q4H PRN PRN Reason: Pain, Moderate(Pain Scale 4-6) Sodium Chloride (0.9 % Sodium Chloride Flush 3 Ml Syringe) 3 ml IVFLUSH QSHIFT [facility] Last Admin: 06/20/24 22:41 Dose: Not Given Documented By: KENNETH Non-Admin Reason: IV Running Labs 06/20/24 03:52 06/20/24 03:52 Procedures Date of Service Date of Service: 06/21/24 Progress Note: A&P Assessment and plan (1) Hernia, ventral: Status: Acute Plan 58-year-old female POD 1 s/p ventral hernia repair. Patient is doing well overall. Experiencing incisional site pain to palpation, endorses some pain with rest that increases with ambulation. Incision site dressings are cleanr and dry. She has been ambulating from the bed to the bathroom. Denies bowel movement, endorses flatus. Tolerating current diet, no nausea or vomiting. Will trial oral pain medications Continue to recommend ambulation as tolerated Continue with diet. Will reevaluate this afternoon, if tolerating oral diet and pain medications, patient can be discharged. Time Spent With Patient Time: Total time managing care of this patient today ____ minutes. Quality Stroke Does the patient have a stroke diagnosis?: No VTE Prior VTE?: No VTE Risk Level:: Surgical - moderate VTE Device Contraindication: N/A - Device Ordered VTE Drug Contraindication: Treatment Not Indicated
[2024-06-21] MEDS: Cyanocobalamin (Vitamin B-12) 1,000 MCG TABLET 2000 MCG PO (07:41)
[2024-06-21] MEDS: 0.9 % Sodium Chloride Flush 3 ML SYRINGE IVFLUSH (07:41)
[2024-06-21] MEDS: Docusate Sodium 100 MG CAPSULE PO (07:41)
[2024-06-21 07:53] VITALS: BP 120/72; PULSE 100; RESP 18; TEMP 36.8; O2SAT 96
--- NOTE | 2024-06-21 08:14 | HO.POSTANES ---
Post Anesthesia Evaluation Post Anesthesia Evaluation Date of Service: 06/21/24 Vital Signs: Vital Signs Temp Pulse Resp BP Pulse Ox O2 Del Method 06/21/24 07:53 98.3 F 100 18 120/72 96 Room Air 06/21/24 03:46 97.4 F 69 16 120/60 96 Room Air Anesthesia: General Mental Status: Awake Pain Control: Satisfactory Nausea/Vomiting: None Hydration: Adequate Anesthesia-Related Issues: No Anes. Related Issues
--- NOTE | 2024-06-21 08:18 | MHC.CM.PN ---
PT TO DC HOME TODAY WITH NO SERVICES VIA PRIVATE TRANSPORT
--- NOTE | 2024-06-21 12:34 | PM.DS ---
DS: Providers Provider Date of Service: 06/21/24 Date of admission: 06/19/24 22:40 Date of discharge: 06/21/24 Primary care physician: Kulwinder Physician Admitting clinician: Jerry Pandey Attending physician on discharge: Jerry Pandey Discharging clinician: Jerry Pandey DS: Diagnosis Discharge Diagnosis (1) Hernia, ventral: Status: Acute DS: Summary Hospital Course Hospital Course: 58 year-old female admitted with PMH significant for distant lap katya n y gastric bypass who presented to the ED with complaints of epigastric/mid abdominal pain and a hard lump at her umbilicus. She reports she was awoken by the pain. She has never noticed the lump there prior. The pain was associated with multiple episodes of vomiting. She denies fever, chills, diarrhea, sick contacts, prior similar episode. Work up showed leukocytosis and lactic acidosis of 3. Epigastric lump was felt to be a ventral hernia and was reduced uneventfully by ED provider with improvement in the patients symptoms. CT scan abd pelvis was performed following which showed a fat containing ventral hernia with mild stranding of the incarcerated fat, no bowel, possible intussusception with the jejunal anastomosis, small bowel at that point is dilated, question transition point involving a decompressed loop of small bowel within the anterior midabdomen. She currently feels well with no abdominal pain. No further nausea or vomiting since presentation. She has not passed any flatus. Hospital course: Patient was admitted to [facility] for SBO secondary to ventral hernia. Patient was brought to the OR on 06/20/[address] Pandey for incarcerated hernia repair with mesh without complication. Patient tolerated the procedure well and was kept overnight for observation. Patient doing well post op. Tolerating oral meds, diet and fluids. Experiencing expected incisional site pain. benign abdominal exam, dressing clean and intact, no evidence of hernia recurrance. Patient felt ready for d/c she was discharged on 06/21/24 in stable condition Status at Discharge Functional status at discharge: independent ambulation Time Attestation Discharge Coordination Time (in mins): 30 Quality: Safe Use of Opioids Does Pt have an Active Cancer Diagnosis on the Problem List?: No Quality: Stroke Does the patient have a stroke diagnosis?: No Physical Exam Vital Signs: Vital Signs: Last Vital Signs Temp 98.3 F 06/21/24 07:53 Pulse 100 06/21/24 07:53 Resp 18 06/21/24 07:53 BP 120/72 06/21/24 07:53 Pulse Ox 96 06/21/24 07:53 O2 Del Method Room Air 06/21/24 07:53 O2 Flow Rate 5 06/20/24 13:35 BMI result Body Mass Index 38.3 Const: General: no acute distress Resp: Effort & Inspection: normal respiratory effort GI: Palpation (GI): Soft to palpation and Tenderness to palpation present (GI) (Generalized tenderness to palpation along incision line) Percussion: Yes normal to percussion Discharge Plan Discharge Anticipated Discharge Date/Time: 06/21/24 08:08 Patient Disposition: Home, Self-Care Discharge Diagnosis: Incarcerated, strangulated ventral hernia Referrals: Jerry Pandey MD [Physician] - 1 Week Physician,Kulwinder Contreras [Primary Care Provider] - 1 Week Discharge Medications: New oxycodone 5 mg tablet 5 mg PO Q6H PRN (Reason: pain (scale score 7-10)) Qty: 15 0RF Rx Instructions: Partial Fill upon patient request. Continued multivitamin Tablet 1 tab PO DAILY cyanocobalamin (vitamin B-12) [Vitamin B-12] 1,000 mcg Tablet 2,000 mcg PO DAILY omega 9-fjc-crd-fish oil [Fish Oil] 1,000 (120-180) mg Capsule 1 cap PO DAILY Discharge Orders: Discharge Order (Routine); Ordered 06/21/24 Ordered By: Jerry Pandey Diet: Advance to usual diet Activity on Discharge: No heavy lifting Stand Alone Forms: Patient Portal Discharge page Print Language: Vietnamese Activity Restrictions/Additional Instructions: No heavy lifting greater than 10 pounds or strenuous activity. Light walking and stairs are okay. Follow up in the office in [address] Pandey. Call MD if developing severe pain, persistent nausea or vomiting, fever. Can remove clear dressing in 3 days. Steri strips are in place which will fall off on their own in about a week. Care Plan Goals: Return to daily activities as tolerated following recovery period. Health Concerns: Incarcerated incisional hernia. SBO Plan of Treatment: s/p repair of incisional hernia with mesh. Follow up in outpatient office 1 week. Assessment: Doing well post op Discharge Date/Time: 06/21/24 10:08
== END 2024-06-21 10:08 | disposition home or self-care (01) | DRG 355 ==
LOC: HO.ED 22:51 → HO.EDOVER 22:58 → HO.S3 06-20 06:38
PROVIDERS: Physician Assistant; Admitting Provider Surgery; Emergency Provider Emergency Medicine Emergency Medical Services; Visit Provider Surgery
PROC: 0WUF0JZ Supplement Abdominal Wall with Synthetic Substitute, Open Approach (ICD-10-PCS; principal; 2024-06-20 10:00)
DX: K43.6 Other and unspecified ventral hernia with obstruction, without gangrene (principal); Z98.84 Bariatric surgery status; Z79.899 Other long term (current) drug therapy
CPT/HCPCS: 36415; 74177; 80048; 80053; 81001; 83605; 85025; 99285; C1781; C9088; J0131; J0690; J1100; J1171; J2003; J2250; J2270; J2371; J2405; J2704; J3010; Q9967

== ENCOUNTER → 2024-06-19 20:08 | Outpatient (BNV) | payer SELFPAY | PROVIDERS: Admitting Provider Surgery; Emergency Provider Emergency Medicine Emergency Medical Services; Visit Provider Radiology Vascular & Interventional Radiology | DX: K56.609 Unspecified intestinal obstruction, unspecified as to partial versus complete obstruction (principal) | CPT/HCPCS: 74177 ==

== ENCOUNTER → 2024-06-19 22:40 | Outpatient (BNV) | payer SELFPAY | PROVIDERS: Admitting Provider Surgery; Emergency Provider Emergency Medicine Emergency Medical Services; Visit Provider Surgery | DX: K56.600 Partial intestinal obstruction, unspecified as to cause (principal); K43.9 Ventral hernia without obstruction or gangrene; Z98.84 Bariatric surgery status | CPT/HCPCS: 49592; 99222; 99499 ==